=== PATIENT | male | born 1970 | race Two or more races ===

== ENCOUNTER 2023-03-06 20:07 | Emergency (ER) | payer OTHER ==
[2023-03-06 20:25] VITALS: BP 150/94; PULSE 68; RESP 20; TEMP 97.6; BMI 27.4
== END 2023-03-06 21:54 | disposition home or self-care (01) ==
LOC: JERFT 20:07
DX: R05.9 Cough, unspecified (principal); J02.9 Acute pharyngitis, unspecified; J40 Bronchitis, not specified as acute or chronic; Z20.822 Contact with and (suspected) exposure to COVID-19
CPT/HCPCS: 0241U-QW; 99283-25

== ENCOUNTER 2024-03-25 09:14 | Emergency (ER) | payer BC, OTHER ==
[2024-03-25 09:21] VITALS: BP 167/84; PULSE 79; TEMP 98.9; BMI 29.5
[2024-03-25 09:51] VITALS: RESP 18
[2024-03-25] MEDS ORDERED: ACETAMINOPHEN 325 MG TABLET (FP) ONE (09:52)
[2024-03-25] MEDS ORDERED: METHOCARBAMOL 500 MG TABLET ONE (09:57)
[2024-03-25] MEDS: ACETAMINOPHEN 325 MG TABLET (FP) PO ONE (10:01)
[2024-03-25] MEDS: METHOCARBAMOL 750 MG TABLET PO ONE (10:01)
== END 2024-03-25 11:51 | disposition home or self-care (01) ==
LOC: JERFT 09:14
DX: M54.50 Low back pain, unspecified (principal); M25.551 Pain in right hip
CPT/HCPCS: 72170-TC-FY; 99283-25